=== PATIENT | female | born 1940 | race Two or more races ===

== ENCOUNTER 2023-12-28 21:07 | Emergency (ER) | payer OTHER ==
[~2023-12-28] VITALS: Ht 152.4 cm; Wt 39.5 kg
[2023-12-28] MEDS ORDERED: NORVASC10 MG PO (21:20)
[2023-12-28] MEDS ORDERED: NEXAVAR200 MG PO (21:21)
[2023-12-28 23:14] LABS: PH,URINE 5.5 (5.0-8.0); URINE APPEARANCE Clear; URINE BILIRRUBIN Negative (NEGATIVE); URINE BLOOD Negative; URINE COLOR Dark Yellow; URINE GLUCOSE Negative (NEGATIVE); URINE KETONE Trace (NEGATIVE); URINE LEUKOCYTE Trace; URINE NITRATE Negative
[2023-12-28 23:18] LABS: URINE BACTERIA 42.8 uL (0.0-1933); URINE CAST 5.19 uL (0.0-1.40); URINE EPITHELIAL CELLS 23.3 uL (0.0-38.8); URINE RBC 9.1 uL (0.0-20.8); URINE WBC 27.1 uL (0.0-23.2)
[2023-12-28 23:23] LABS: HEMATOCRIT 31.3 % (36.0-45.00); HEMOGLOBIN 10.6 g/dL (12.0-15.00); MEAN CELL VOLUME 74.6 fL (80.00-100.00); MEAN CORPUSCULAR HEMOGLOBIN 25.2 pg (27.00-32.0); MEAN CORPUSCULAR HGB CONC 33.8 g/dl (32.0-36.0); PLATELET COUNT 321 K/uL (150-450)
[2023-12-28 23:24] LABS: RED CELL DISTRIBUTION WIDTH 20.8 % (11.5-14.5)
[2023-12-28 23:24] LABS: URINE PROTEIN 100 (NEGATIVE)
[2023-12-28 23:37] LABS: ALBUMIN 2.3 gm/dL (3.4-5.0); BILIRUBIN TOTAL 0.3 mg/dL (0.3-1.2); CALCIUM 8.9 mg/dL (8.5-10.1); CREATININE SERUM 0.93 mg/dL (0.55-1.02); GFR 57.58; GLOBULINA 6.4 G/DL (2.4-3.5); POTASSIUM 4.41 mEq/L (3.5-5.1); TOTAL PROTEIN 8.7 gm/dL (6.4-8.2)
[2023-12-29 00:32] LABS: INR 1.05; PARTIAL THROMBOPLASTIN TIME 30.5 SECONDS (22.0-34.0); PROTHROMBIN TIME 11.4 SECONDS (9.0-11.5)
[2023-12-29] MEDS ORDERED: KETOROLAC TROMETHAMINE 30 MG VIAL IV STA (01:52)
[2023-12-29] MEDS ORDERED: MEPERIDINE HCL/PF 25 MG/ML VIAL IM STA (01:52)
[2023-12-29] MEDS ORDERED: PROMETHAZINE HCL 25 MG/ML AMPUL IM STA (01:52)
[2023-12-29] MEDS ORDERED: KETOROLAC TROMETHAMINE 30 MG VIAL ONE (01:58)
[2023-12-29] MEDS ORDERED: PROMETHAZINE HCL 25 MG/ML AMPUL ONE (01:58)
== END 2023-12-29 02:17 | disposition home or self-care (01) ==
LOC: ER 21:09
PROVIDERS: General Practice
DX: R53.83 Other fatigue (principal); G89.3 Neoplasm related pain (acute) (chronic); R18.8 Other ascites; R10.9 Unspecified abdominal pain; T45.1X5A Adverse effect of antineoplastic and immunosuppressive drugs, initial encounter; I10 Essential (primary) hypertension
CPT/HCPCS: 36415; 74176; 96365; 96372; 99284; J1885; J3490 ×2